=== PATIENT | female | born 2000 | race Hispanic/Latino ===

== ENCOUNTER 2019-09-05 06:54 | Outpatient (CLI) | payer MEDICAID ==
--- NOTE | 2019-09-05 07:54 | ULT ---
Exam: Pelvic ultrasound HISTORY: Pelvic pain COMPARISON: None TECHNIQUE: Multiple grayscale and color Doppler images were obtained in a transabdominal pelvic ultra sound. Spectral analysis of the Doppler waveforms of the ovaries were performed. FINDINGS: CERVIX: Grossly normal in appearance. UTERUS: Normal in size without focal abnormality. ENDOMETRIAL STRIPE: 15 mm which is mildly thickened. No fluid or fluid collection is seen in the endo metrial canal. No free fluid is present. RIGHT OVARY: There is a small hypoechoic cystic structure measuring 2 cm. This could potentially repr esent a hemorrhagic cyst, but follow-up is recommended to ensure resolution. Normal flow is present in the right ovary. LEFT OVARY: Normal flow, without focal mass. Dominant follicles are present. IMPRESSION: 1. Hypoechoic lesion left ovary which cannot be characterized as a simple cyst. This could represent a hemorrhagic cyst or possibly endometrioma. Follow-up evaluation in 8 weeks is recommended. 2. Normal-appearing left ovary. 3. Mild thickening of the endometrium. This could be related to stage of the patient's menstrual cycl e.
== END 2019-09-05 06:55 | disposition home or self-care (01) ==
LOC: BICULT 06:54
DX: R10.2 Pelvic and perineal pain (principal); R93.89 Abnormal findings on diagnostic imaging of other specified body structures; N83.8 Other noninflammatory disorders of ovary, fallopian tube and broad ligament
CPT/HCPCS: 76856; 93976

== ENCOUNTER 2019-11-06 14:46 | Outpatient (CLI) | payer MEDICAID ==
--- NOTE | 2019-11-06 15:10 | ULT ---
Pelvic sonogram transabdominal imaging with duplex evaluation HISTORY: Pelvic mass. Pain. Follow-up. COMPARISON: 09/05/2019. FINDINGS: Urinary bladder is decompressed. Uterus has a homogeneous echotexture and is 7.1 cm length on today's exam. Endometrium is 0.6 cm. No free fluid. Well-circumscribed oval slightly heterogeneous hypoechoic lesion associated with the right adnexa is 3.0 cm x 2.3 cm greatest diameters on the current study, larger than on the previous exam. Appearance is otherwise unchanged. Good color and spectral Doppler flow of each ovary. Small follicles of the left ovary. IMPRESSION : Interval enlargement of the hypoechoic complex lesion (3.0 cm) of the right ovary that could still re present a hemorrhagic cyst versus endometrioma. Please consider gynecologic evaluation and continued sonographic follow-up as appropriate.
== END 2019-11-06 14:47 | disposition home or self-care (01) ==
LOC: BICULT 14:46
DX: R93.89 Abnormal findings on diagnostic imaging of other specified body structures (principal); N83.8 Other noninflammatory disorders of ovary, fallopian tube and broad ligament
CPT/HCPCS: 76856; 93976